=== PATIENT | male | born 1980 | race Caucasian/White ===

== ENCOUNTER 2017-01-16 20:16 | Emergency (ER) | payer OTHER ==
[~2017-01-16] VITALS: Ht 170.2 cm; Wt 66.5 kg
[~2017-01-16 20:16] MED LIST: PEN-VEE K,VEET500 MG PO; ULTRAM50 MG PO
[2017-01-16 21:39] LABS: HEMATOCRIT 44.6 % (38.0-50.0); MCHC 33.2 G/DL (30.0-36.0); MCV 84.3 FL (86-99); MEAN PLAT.VOLUME 10.2 uM^3 (9.0-12.4); PLATELET COUNT 334 K/uL (156-360); RBC DIS.WIDTH-CV 12.2 % (11.8-14.6); RBC DIS.WIDTH-SD 36.9 % (39-53); RED BLOOD COUNT 5.29 M/uL (4.00-5.50)
[2017-01-16 21:49] LABS: CHLORIDE 108 mEq/L (99-109); D-DIMER ELISA < 150.00 ng/mLDDU (<230); POTASSIUM 4.3 mEq/L (3.7-5.4); SODIUM 138 mEq/L (136-147)
[2017-01-16 21:51] LABS: GLUCOSE 88 mg/dL (70-99)
[2017-01-16 21:52] LABS: ANION GAP 6 MEQ/L (2-14)
[2017-01-16 21:55] LABS: GFR ESTIMATE (CALCULATED) > 59 mL/min/
[2017-01-16 21:56] LABS: UREA NITROGEN (BUN) 18 mg/dL (9-23)
[2017-01-16 22:00] LABS: TROP-I INTERPRETATION NEGATIVE; TROPONIN-I < 0.01 ng/mL (0.0-0.30)
[2017-01-17 01:13] LABS: TROP-I INTERPRETATION NEGATIVE; TROPONIN-I < 0.01 ng/mL (0.0-0.30)
[2017-01-17 02:26] VITALS: BP 106/74
== END 2017-01-17 02:35 | disposition home or self-care (01) ==
LOC: EME 20:16
PROVIDERS: Physician Assistant Medical
DX: M25.511 Pain in right shoulder (principal); R07.9 Chest pain, unspecified; F17.200 Nicotine dependence, unspecified, uncomplicated
CPT/HCPCS: 71020; 73030; 80048; 84484; 85027; 85379; 93005; 99281; 99285; J1885